=== PATIENT | female | born 1975 | race Caucasian/White ===

== ENCOUNTER 2018-06-17 10:06 | Day surgery (SDC) | payer MEDICAID ==
[~2018-06-17] VITALS: Ht 162.6 cm; Wt 55.5 kg
[~2018-06-17 10:06] MED LIST: FURO40 PO; LACT10SO75 PO; SPIR50 PO
[2018-06-17] MEDS ORDERED: SODIUM CHLORIDE 0.9% 1,000 ML IV ONE ×2 (10:43→11:00)
== END 2018-06-17 15:00 | disposition home or self-care (01) ==
LOC: SURGERY 10:06
PROVIDERS: ATTEND Internal Medicine Gastroenterology
DX: K76.6 Portal hypertension (principal); K31.89 Other diseases of stomach and duodenum; K70.30 Alcoholic cirrhosis of liver without ascites; F12.90 Cannabis use, unspecified, uncomplicated; F10.10 Alcohol abuse, uncomplicated; Z98.890 Other specified postprocedural states; Z79.899 Other long term (current) drug therapy
CPT/HCPCS: 43239; 84703; J7030